=== PATIENT | female | born 1960 | race Caucasian/White ===

== ENCOUNTER → 2018-08-28 | Outpatient (CLI) | payer OTHER ==
--- NOTE | 2018-08-28 10:49 | REP ---
Clinical: Muscle strain. Technique: AP, lateral, bilateral oblique and coned-down views of the lumbosacral spine. Findings: No acute fracture / compression injury or subluxation. Alignment is maintained. Mild/moderate degenerative changes include endplate sclerosis with minimal disc space narrowing and early marginal spurring. Hypertrophic facet changes at L5-S1 are also suggested. Impression: Mild/moderate multilevel degenerative changes most pronounced at the L5-S1. Electronically Signed by Abhishek Sim MD 08/28/2018 10:42 A
== END ==
LOC: M WUC 09:50
PROVIDERS: ATTEND Physician Assistant
DX: S39.012A Strain of muscle, fascia and tendon of lower back, initial encounter (principal); M51.37 Other intervertebral disc degeneration, lumbosacral region; X58.XXXA Exposure to other specified factors, initial encounter; Y92.9 Unspecified place or not applicable